=== PATIENT | female | born 1940 | race Caucasian/White ===

== ENCOUNTER 2017-03-02 11:05 | Observation (INO) | payer MEDICARE ==
--- NOTE | 2017-03-02 11:35 | ER Document Report ---
ED Neuro Symptoms/Deficit - General Mode of Arrival: Ambulatory Information source: Patient, Friend TRAVEL OUTSIDE OF THE [place] IN LAST 30 DAYS: No <OLU PRESTON - Last Filed: 03/02/17 12:12> <FRANCHESCA HERRERA - Last Filed: 03/02/17 14:27> - General Chief Complaint: Slurred Speech Stated Complaint: SLURRED SPEACH Time Seen by Provider: 03/02/17 11:25 Notes: Patient is a 76-year-old female that presents to the emergency department today with complaints of left-sided facial weakness, left-sided facial numbness, and subjective left hand weakness. Patient states her symptoms began last week, friend at bedside adds that the day of onset was last Thursday, with "cheek swelling" and the friend also adds that her cheek looked "puffy and she was drooling". Patient states she has a sensation of "pressure behind the eyes and left sided lip numbness". Patient denies having a history of CVA in the past. Patient denies left lower extremity weakness, nausea, or abdominal pain. (OLU PRESTON) - Related Data Allergies/Adverse Reactions: doxycycline Allergy (Verified 03/02/17 12:50) sulfamethoxazole [From Bactrim] Allergy (Verified 03/02/17 12:50) trimethoprim [From Bactrim] Allergy (Verified 03/02/17 12:50) Home Medications: Current Home Medications Amlodipine Besylate [Norvasc 10 mg Tablet] 10 mg PO DAILY 03/02/17 [History] Clindamycin HCl [Clindamycin HCl] 150 mg PO DAILY 03/02/17 [History] Mupirocin [Mupirocin] 22 gm TOP BID 03/02/17 [History] Quinapril HCl 80 mg PO DAILY 03/02/17 [History] Past Medical History - General Information source: Patient - Social History Smoking Status: Unknown if Ever Smoked Cigarette use (# per day): No Frequency of alcohol use: None Drug Abuse: None Lives with: Family Family History: Reviewed & Not Pertinent Patient has suicidal ideation: No - Past Medical History Cardiac Medical History: Reports: Hx Hypertension EENT Medical History: Reports: Eyes - Right-sided macular degeneration Neurological Medical History: Denies: Hx Cerebrovascular Accident Renal/ Medical History: Denies: Hx Peritoneal Dialysis Surgical Hx: Negative <OLU PRESTON - Last Filed: 03/02/17 12:12> Review of Systems - Review of Systems Constitutional: No symptoms reported EENT: No symptoms reported Cardiovascular: No symptoms reported Respiratory: No symptoms reported Gastrointestinal: denies: Abdominal pain, Nausea Genitourinary: No symptoms reported Female Genitourinary: No symptoms reported Musculoskeletal: No symptoms reported Skin: No symptoms reported Hematologic/Lymphatic: No symptoms reported Neurological/Psychological: See HPI, Other - left sided facial numbness, weakness, subjective left hand weakness -: Yes All other systems reviewed and negative <OLU PRESTON - Last Filed: 03/02/17 12:12> Physical Exam <OLU PRESTON - Last Filed: 03/02/17 12:12> <FRANCHESCA HERRERA - Last Filed: 03/02/17 14:27> - Vital signs Vitals: Temp Pulse Resp BP Pulse Ox 98.6 F 107 H 18 180/91 H 97 03/02/17 11:12 03/02/17 11:12 03/02/17 11:12 03/02/17 11:12 03/02/17 11:12 - Notes Notes: Physical Exam: General: Alert, appears well. HEENT: Normocephalic. Atraumatic. PERRL. Extraocular movements intact. Oropharynx clear. Left sided facial asymmetry, see neuro exam. Neck: Supple. Non-tender. Respiratory: No respiratory distress. Clear and equal breath sounds bilaterally. Cardiovascular: Tachycardic in the 110-120 range, normal rhythm. Abdominal: Normal Inspection. Non-tender. No distension. Normal Bowel Sounds. Back: Non-tender. No deformity or step off. Extremities: Moves all four extremities. Upper extremities: Normal inspection. Normal ROM. Lower extremities: Normal inspection. No edema. Normal ROM. Neurological: Normal cognition. AAOx4. Normal speech. 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 Psychological: Normal affect. Normal Mood. Skin: Warm. Dry. Normal color. (OLU PRESTON) Course - Laboratory Result Diagrams: 03/02/17 11:34 03/02/17 11:34 <KARYOLU CORREA - Last Filed: 03/02/17 12:12> - Laboratory Result Diagrams: 03/02/17 11:34 03/02/17 11:34 <FRANCHESCA HERRERA - Last Filed: 03/02/17 14:27> - Re-evaluation Re-evalutation: 03/02/17 12:44 I was called with CT results. The patient has evidence of possible acute infarct in the posterior right parietal area. Patient's timeframe for this event is unclear to me. She has been having symptoms over the past week, but with worsening asymmetry starting yesterday. No thrombolytic treatment is indicated due to this timeframe as well as the low neurologic impairment she is displaying. I discussed the case with the hospitalist service, Dr. Genesis Childs, who will see the patient emergency department and arrange for admission. I had spoken about this with the patient first and she reluctantly agreed to be admitted to the hospital. (FRANCHESCA HERRERA) - Vital Signs Vital signs: Temp Pulse Resp BP Pulse Ox 98.6 F 104 H 24 H 171/76 H 95 03/02/17 11:12 03/02/17 11:25 03/02/17 13:02 03/02/17 13:02 03/02/17 13:02 - Laboratory Laboratory results interpreted by me: 03/02/17 03/02/17 03/02/17 11:34 11:34 11:34 RDW 14.6 H Glucose 116 H POC Glucose 120 H Direct Bilirubin 0.5 H Discharge <OLU PRESTON - Last Filed: 03/02/17 12:12> - Discharge Admitting Provider: Hospitalist <FRANCHESCA HERRERA - Last Filed: 03/02/17 14:27> - Discharge Clinical Impression: Facial droop due to stroke CVA (cerebral vascular accident) Qualifiers: CVA mechanism: unspecified Qualified Code(s): I63.9 - Cerebral infarction, unspecified Condition: Fair Disposition: ADMITTED INPATIENT Scribe Documentation - Scribe Written by Don:: Don Naranjo, 03/02/2017 1228 acting as scribe for :: Marisa <OLU PRESTON - Last Filed: 03/02/17 12:12>
--- NOTE | 2017-03-02 11:42 | RADIOLOGY REPORT (SQ) ---
EXAM DESCRIPTION: CT HEAD WITHOUT COMPLETED DATE/TIME: 03/02/2017 11:22 am REASON FOR STUDY: t2/19 stroke alert COMPARISON: None. TECHNIQUE: Axial images acquired through the brain without intravenous contrast. Images reviewed wi th bone, brain and subdural windows. Images stored on PACS. All CT scanners at this facility use dose modulation, iterative reconstruction, and/or weight based d osing when appropriate to reduce radiation dose to as low as reasonably achievable (ALARA). [facility]: Dose Right [facility]: CareDose [facility]: Dose Right [facility]: Teradose 4D [facility]: [employer] RADIATION DOSE: Up-to-date CT equipment and radiation dose reduction techniques were employed. CTDIv ol: 64.6 mGy. DLP: 1163 mGy-cm. mGy. LIMITATIONS: None. FINDINGS: VENTRICLES: Normal size and contour. CEREBRUM: No masses. No hemorrhage. No midline shift. There is a small area of decreased attenuati on in the posterior parietal white matter on the right that appears to extend to involve the cortex. See images 22 through 25 series 2. . Few scattered areas of low density in the white matter most li laura chronic small vessel ischemic changes. CEREBELLUM: No masses. No hemorrhage. No alteration of density. No evidence for acute infarction. EXTRAAXIAL SPACES: No fluid collections. No masses. ORBITS AND GLOBE: No intra- or extraconal masses. Normal contour of globe without masses. CALVARIUM: No fracture. PARANASAL SINUSES: No fluid or mucosal thickening. SOFT TISSUES: No mass or hematoma. OTHER: No other significant finding. IMPRESSION: There is mild chronic microvascular ischemia. There is an area in the posterior right p arietal lobe concerning for limited acute infarction. EVIDENCE OF ACUTE STROKE: YES. 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 Landry, at 1134 hours on this da te. Quality ID # [id number]: Final reports with documentation of one or more dose reduction techniques (e.g., Au tomated exposure control, adjustment of the mA and/or kV according to patient size, use of iterative reconstruction technique) TECHNICAL DOCUMENTATION: JOB ID: [id number] [employer]- All Rights Reserved
[2017-03-02 11:46] LABS: PROTHROMBIN TIME 12.8 SEC (11.4-15.4)
--- NOTE | 2017-03-02 11:46 | RADIOLOGY REPORT (SQ) ---
EXAM DESCRIPTION: CHEST SINGLE VIEW COMPLETED DATE/TIME: 03/02/2017 11:29 am REASON FOR STUDY: t2/19 stroke alert COMPARISON: None. EXAM PARAMETERS: NUMBER OF VIEWS: One view. TECHNIQUE: Single frontal radiographic view of the chest acquired. RADIATION DOSE: NA LIMITATIONS: None. FINDINGS: LUNGS AND PLEURA: No opacities, masses or pneumothorax. No pleural effusion. MEDIASTINUM AND HILAR STRUCTURES: No masses. Contour normal. HEART AND VASCULAR STRUCTURES: Heart normal in size. Normal vasculature. BONES: No acute findings. HARDWARE: None in the chest. OTHER: No other significant finding. IMPRESSION: NO ACUTE RADIOGRAPHIC FINDING IN THE CHEST. TECHNICAL DOCUMENTATION: JOB ID: [id number]
[2017-03-02 11:47] LABS: PARTIAL THROMBOPLASTIN TIME 33.2 SEC (23.5-35.8)
[2017-03-02 11:49] LABS: ABSOLUTE BASOPHILS # (AUTO) 0.1 10^3/uL (0.0-0.2); ABSOLUTE LYMPHOCYTES (AUTO) 1.2 10^3/uL (0.5-4.7); ABSOLUTE MONOCYTES (AUTO) 0.4 10^3/uL (0.1-1.4); BASOPHILS % (AUTO) 0.9 % (0-2); EOSINOPHILS % (AUTO) 0.5 % (0-6); HEMOGLOBIN 15.1 g/dL (12.0-15.5); HGB HCT DIFFERENCE 1.3; LYMPHOCYTES % (AUTO) 15.4 % (13-45); MEAN CORPUSCULAR HEMOGLOBIN 29.4 pg (27.0-33.4); MEAN CORPUSCULAR HGB CONC 34.4 g/dL (32.0-36.0); MEAN CORPUSCULAR VOLUME 85 fl (80-97); MONOCYTES % (AUTO) 5.2 % (3-13); RED BLOOD COUNT 5.15 10^6/uL (3.72-5.28); RED CELL DISTRIBUTION WIDTH 14.6 % (11.5-14.0); WHITE BLOOD COUNT 7.6 10^3/uL (4.0-10.5)
[2017-03-02 12:12] LABS: ALANINE AMINOTRANSFERASE 30 U/L (9-52); ALBUMIN 4.9 g/dL (3.5-5.0); ALKALINE PHOSPHATASE 107 U/L (38-126); ANION GAP 17 (5-19); ASPARTATE AMINO TRANSFERASE 19 U/L (14-36); BILIRUBIN,DIRECT 0.5 mg/dL (0.0-0.4); BILIRUBIN,TOTAL 0.7 mg/dL (0.2-1.3); BLOOD UREA NITROGEN 11 mg/dL (7-20); CARBON DIOXIDE 23 mmol/L (22-30); CHLORIDE 101 mmol/L (98-107); CREATINE KINASE 45 U/L (30-135); CREATININE RESULT 0.66 mg/dL (0.52-1.25); GLUCOSE 116 mg/dL (75-110); POTASSIUM 3.7 mmol/L (3.6-5.0); SODIUM 140.7 mmol/L (137-145); TOTAL PROTEIN 8.2 g/dL (6.3-8.2)
[2017-03-02 12:22] LABS: CREATINE KINASE MB 0.85 ng/mL (<4.55)
[2017-03-02 12:31] LABS: TROPONIN I < 0.012 ng/mL
[2017-03-02] MEDS ORDERED: TEMAZEPAM 15 MG CAPSULE PO PRN (13:40)
[2017-03-02] MEDS ORDERED: HYDRALAZINE HCL INJ/PF 20 MG/1 ML SDV IV PRN (13:49)
--- NOTE | 2017-03-02 14:05 | PDOC H&P ---
History of Present Illness Admission Date/PCP: 03/02/2017 sole rougher: Dr Arias at [facility] History of Present Illness: LANG RAHMAN is a 76 year old female who presented to the emergency room with a 3-4 day history of left-sided facial droop and left-sided weakness. Initially she felt like she may have Thornton's palsy but after she developed some tingling and some subjective weakness in her left upper extremity she decided to present to the emergency room for further evaluation. She had a CT scan of the brain which revealed a possible subacute infarct. She was referred for admission. Her past medical history significant for hypertension and hidradenitis as well as macular degeneration. Past Medical History Cardiac Medical History: Reports: Hypertension Pulmonary Medical History: Reports: None EENT Medical History: Reports: Eyes - Right-sided macular degeneration Neurological Medical History: Reports: None Endocrine Medical History: Reports: None Renal/ Medical History: Reports: None Malignancy Medical History: Reports: None GI Medical History: Reports: None Musculoskeltal Medical History: Reports: None Skin Medical History: Reports: Other - Hidradenitis Psychiatric Medical History: Reports: Tobacco Dependency Traumatic Medical History: Reports: None Hematology: Reports: None Infectious Medical History: Reports: None Past Surgical History Past Surgical History: Reports: Hysterectomy, Other - Surgery on her hidradenitis. Social History Information Source: Patient, Friend Lives with: Family Smoking Status: Current Every Day Smoker Cigarettes Packs Per Day: 1.5 - Packs per day Number of Years Smokin - 20+ Last Time Smoked: Today Frequency of Alcohol Use: None Drugs: None Hx Prescription Drug Abuse: No - Advance Directive Surrogate healthcare decision maker:: Her surrogate decision-maker is her son Senthil Bain. He can be reached at Family History Family History: Hypertension, Malignancy Parental Family History Reviewed: Yes Children Family History Reviewed: No Sibling(s) Family History Reviewed.: Yes Medication/Allergy Home Medications: Amlodipine Besylate [Norvasc 10 mg Tablet] 10 mg PO DAILY 03/02/17 Clindamycin HCl [Clindamycin HCl] 150 mg PO DAILY 03/02/17 Mupirocin [Mupirocin] 22 gm TOP BID 03/02/17 Quinapril HCl 80 mg PO DAILY 03/02/17 Allergies/Adverse Reactions: doxycycline Allergy (Verified 03/02/17 12:50) sulfamethoxazole [From Bactrim] Allergy (Verified 03/02/17 12:50) trimethoprim [From Bactrim] Allergy (Verified 03/02/17 12:50) Review of Systems Constitutional: PRESENT: weakness Eyes: ABSENT: visual disturbances Ears: ABSENT: hearing changes Nose, Mouth, and Throat: ABSENT: headache(s), mouth pain, sore throat, vertigo Cardiovascular: ABSENT: chest pain, dyspnea on exertion, edema, orthropnea, palpitations Respiratory: ABSENT: cough, dyspnea, hemoptysis, sputum Gastrointestinal: ABSENT: abdominal pain, constipation, diarrhea, nausea, vomiting Integumentary: ABSENT: diaphoresis, erythema, lesions Neurological: PRESENT: tingling, weakness, other - She has left-sided facial droop as well as left-sided weakness, particularly in her left upper extremity.. ABSENT: abnormal gait, abnormal speech, dizziness Psychiatric: ABSENT: anxiety, depression, homidical ideation, suicidal ideation Endocrine: ABSENT: cold intolerance, heat intolerance, polydipsia, polyphagia, polyuria Hematologic/Lymphatic: ABSENT: easy bleeding, easy bruising, lymphadenopathy Allergic/Immunologic: ABSENT: seasonal rhinorrhea Physical Exam Vital Signs: Temp Pulse Resp BP Pulse Ox 98.6 F 104 H 24 H 171/76 H 95 03/02/17 11:12 03/02/17 11:25 03/02/17 13:02 03/02/17 13:02 03/02/17 13:02 Intake & Output 03/01/17 03/02/17 03/03/17 06:59 06:59 06:59 Weight 72.5 kg General appearance: PRESENT: no acute distress, well-developed, well-nourished Head exam: PRESENT: atraumatic. ABSENT: normocephalic - She has mild left- sided facial droop Eye exam: PRESENT: conjunctiva pink, EOMI, PERRLA. ABSENT: scleral icterus Ear exam: PRESENT: normal external ear exam Mouth exam: PRESENT: moist. ABSENT: tongue midline - Tongue is somewhat deviated to the left Neck exam: ABSENT: carotid bruit, JVD, lymphadenopathy, thyromegaly Respiratory exam: PRESENT: clear to auscultation jordyn. ABSENT: rales, rhonchi, wheezes Cardiovascular exam: PRESENT: RRR. ABSENT: diastolic murmur, rubs, systolic murmur GI/Abdominal exam: PRESENT: normal bowel sounds, soft. ABSENT: distended, guarding, mass, organolmegaly, rebound, tenderness Rectal exam: PRESENT: deferred Extremities exam: PRESENT: full ROM. ABSENT: calf tenderness, clubbing, pedal edema Neurological exam: PRESENT: alert, awake, oriented to person, oriented to place , oriented to time, oriented to situation, other - Mild left-sided facial droop. She has extremely mild left hemiparesis. ABSENT: motor sensory deficit Psychiatric exam: PRESENT: appropriate affect, normal mood. ABSENT: homicidal ideation, suicidal ideation Skin exam: PRESENT: dry, intact, warm. ABSENT: cyanosis, rash Results Laboratory Results: 03/02/17 11:34 03/02/17 11:34 03/02/17 03/02/17 11:34 11:34 WBC 7.6 RBC 5.15 Hgb 15.1 Hct 44.0 MCV 85 MCH 29.4 MCHC 34.4 RDW 14.6 H Plt Count 183 Seg Neutrophils % 78.0 Lymphocytes % 15.4 Monocytes % 5.2 Eosinophils % 0.5 Basophils % 0.9 Absolute Neutrophils 6.0 Absolute Lymphocytes 1.2 Absolute Monocytes 0.4 Absolute Eosinophils 0.0 Absolute Basophils 0.1 Sodium 140.7 Potassium 3.7 Chloride 101 Carbon Dioxide 23 Anion Gap 17 BUN 11 Creatinine 0.66 Est GFR ( Amer) > 60 Est GFR (Non-Af Amer) > 60 Glucose 116 H Calcium 10.0 Total Bilirubin 0.7 AST 19 ALT 30 Alkaline Phosphatase 107 Total Protein 8.2 Albumin 4.9 03/02/17 03/02/17 11:34 11:34 Creatine Kinase 45 CK-MB (CK-2) 0.85 Troponin I < 0.012 Impressions: Chest X-Ray 03/02/17 11:16 IMPRESSION: NO ACUTE RADIOGRAPHIC FINDING IN THE CHEST. Head CT 03/02/17 11:16 IMPRESSION: There is mild chronic microvascular ischemia. There is an area in the posterior right parietal lobe concerning for limited acute infarction. EVIDENCE OF ACUTE STROKE: YES. 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 We will get an MRI of the brain, carotid Dopplers and 2D echocardiogram for further evaluation. She states that she used to take aspirin in the past but it upset her stomach. Will place her on an aspirin as well as a PPI for now. She will be started on a statin medication. We will try to get better control over her blood pressure. (2) Hypertensive emergency Plan: The patient's blood pressure was extremely high when she came to the hospital. It is improved as of the time of this dictation. She will continue her home regimen and she will have IV hydralazine available as needed. (3) Hyperglycemia Plan: Possibly just reactive to her CVA. Will get a hemoglobin A1c in the morning. She will also have a chemistry panel checked in the morning as well. (4) Left hemiparesis Plan: The patient has extremely mild left hemiparesis. This is likely secondary to acute versus subacute CVA. Will get physical therapy to evaluate her. (5) Tobacco abuse Plan: She will have a nicotine patch placed today. She was encouraged to quit smoking. (6) Full code status Plan: Surrogate decision maker was documented which is her son Senthil Bain - Time Time Spent: 50 to 70 Minutes - Inpatient Certification Based on my medical assessment, after consideration of the patient's comorbidities, presenting symptoms, or acuity I expect that the services needed warrant INPATIENT care.: No I certify that my determination is in accordance with my understanding of Medicare's requirements for reasonable and necessary INPATIENT services [42 CFR 412.3e].: No - Plan Summary Plan Summary: The patient will be placed in observation at the hospital. I believe that her workup will take less than 2 midnights. Hopefully since her symptoms are quite mild she can be discharged home tomorrow afternoon after her workup is complete with close outpatient follow-up by her primary care provider.
[2017-03-02] MEDS ORDERED: NICOTINE 21 MG/24 HR PATCH.TD24 TD ONE (14:06)
[2017-03-02 14:45] LABS: APPEARANCE,URINE CLEAR; BILIRUBIN,URINE NEGATIVE (NEGATIVE); GLUCOSE, URINE NEGATIVE (NEGATIVE); KETONES,URINE TRACE mg/dL (NEGATIVE); LEUKOCYTE ESTERASE,URINE NEGATIVE (NEGATIVE); NITRITE,URINE NEGATIVE (NEGATIVE); PROTEIN,URINE NEGATIVE (NEGATIVE); URINE SPECIFIC GRAVITY 1.002; UROBILINOGEN,URINE NEGATIVE mg/dL (<2.0)
--- NOTE | 2017-03-02 16:04 | RADIOLOGY REPORT (SQ) ---
EXAM DESCRIPTION: CAROTID DOPPLER COMPLETED DATE/TIME: 03/02/2017 3:29 pm REASON FOR STUDY: cva COMPARISON: CT BRAIN 03/02/2017 TECHNIQUE: Grayscale ultrasound, Doppler velocity and spectra, and color Doppler images acquired of the extra-cranial carotid and vertebral arteries. Images stored on PACS. LIMITATIONS: None. FINDINGS: RIGHT CAROTID CCA Velocities: Within normal limits. ICA Velocities Peak systolic 3.4 m/s. End diastolic 1.4 m/s. Proximal ICA/CCA peak systolic ratio 4.8. There is calcific and noncalcific plaque at the right carotid bifurcation causing shadowing of the or igin right ICA. Immediately distal to the shadowing plaque, velocities suggest greater than 70% sten osis. This finding was called to Sujatha Childs as a critical result, 1540 hours 03/02/2017. LEFT CAROTID CCA Velocities: Within normal limits. ICA Velocities Peak systolic 1.2 m/s. End diastolic 0.5 m/s. Proximal ICA/CCA peak systolic ratio 1.6. There is mixed calcific and noncalcific plaque at the left carotid bifurcation shadowing the origin o f the left ICA. Immediately distal to the shadowing plaque, velocities suggest 50 to 69% narrowing, closer to 50%. VERTEBRAL ARTERIES: Antegrade flow. Normal waveforms. SUBCLAVIAN ARTERIES: Not evaluated OTHER: No other significant finding. IMPRESSION: Greater than 70% stenosis proximal right ICA from calcific and noncalcific plaque. 50 to 69% narrowing proximal left internal carotid artery from calcific and noncalcific plaque RECOMMENDATION: Pertinent findings on the imaging study reported as a CRITICAL RESULT to SUJATHA VAZQUEZ at15:40 on 03/02/2017. Category of Critical Result: Carotid stenosis right side greater than 70% COMMENT: Quality ID #[id number]: Velocity criteria are extrapolated from the diameter data as defined by t he Society of Radiologists in Ultrasound Consensus Conference. Radiology 2003: 229; 340-346. TECHNICAL DOCUMENTATION: JOB ID: [id number] [employer]- All Rights Reserved
--- NOTE | 2017-03-02 18:38 | EKG REPORT ---
SEVERITY:- ABNORMAL ECG - SINUS TACHYCARDIA PROBABLE LEFT ATRIAL ABNORMALITY CONSIDER ANTEROSEPTAL INFARCT : Confirmed by: Chary Brown 02-Mar-2017 18:37:44
--- NOTE | 2017-03-02 19:09 | XCELERA REPORT ---
[address] [address] Transthoracic Echocardiogram Report Name: LANG RAHMAN Age: 76 yrs Gender: Female : 1940 Patient Status: Inpatient Patient Location: [place] [address]^A Study Date: 03/02/2017 02:07 PM Height: 63 in Weight: 159 lb BSA: 1.8 m2 Procedure: A two-dimensional transthoracic echocardiogram with color flow and Doppler was performed. The study was technically difficult with many images being suboptimal in quality. Reason For Study: CVA History: CVA. Ordering Physician: SUJATHA SEGOVIA Performed By: Susana Harper Interpretation Summary There is no obvious cardiac source of embolus noted on this transthoracic echocardiogram. Follow-up with a MICHEL is suggested if cardiac source is still suspected. The left ventricle is normal in size. There is mild concentric left ventricular hypertrophy. LV EF is > than 60% Doppler measurements suggest pseudonormalized left ventricular relaxation, which is associated with grade II/IV or mild to moderate diastolic dysfunction The left ventricular wall motion is normal. There is no thrombus. The right ventricle is not well visualized secondary to technical limitations The right atrium is normal. The left atrial size is normal. There is no evidence of mitral valve prolapse. There is no mitral valve stenosis. There is a trace amount of mitral regurgitation Aortic Sclerosis without Stenosis. No aortic regurgitation is present. There is no tricuspid stenosis. There is a trace amount of tricuspid regurgitation No significant pulmonary hypertension.RVSP is 32 mm of Hg , with RA mean of 5, and is just above the upper normal limit of 30 mm of Hg. There is no pericardial effusion. There is no obvious cardiac source of embolus noted on this transthoracic echocardiogram. Follow-up with a MICHEL is suggested if cardiac source is still suspected MMode/2D Measurements & Calculations RVDd: 2.9 cm LVIDd: 4.1 cm FS: 31.4 % Ao root diam: 2.5 cm IVSd: 1.2 cm LVIDs: 2.8 cm EDV(Teich): 74.4 ml LVPWd: 1.2 cm ESV(Teich): 30.0 ml Ao root area: 5.0 cm2 EF(Teich): 59.7 % LA dimension: 3.3 cm Doppler Measurements & Calculations MV E max shirlene: MV P1/2t max shirlene: Ao V2 max: LV V1 max P.9 cm/sec 83.9 cm/sec 165.1 cm/sec 3.6 mmHg MV A max shirlene: MV P1/2t: 55.6 msec Ao max PG: LV V1 max: 134.8 cm/sec 10.9 mmHg 94.3 cm/sec MV E/A: 0.62 MVA(P1/2t): 4.0 cm2 MV dec slope: 441.7 cm/sec2 PA V2 max: TR max shirlene: 97.7 cm/sec 259.3 cm/sec PA max P.8 mmHgTR max P.9 mmHg Left Ventricle The left ventricle is normal in size. There is mild concentric left ventricular hypertrophy. LV EF is > than 60%. Left ventricular systolic function is normal. Doppler measurements suggest pseudonormalized left ventricular relaxation, which is associated with grade II/IV or mild to moderate diastolic dysfunction. The left ventricular wall motion is normal. There is no thrombus. There is no ventricular septal defect visualized. Right Ventricle The right ventricle is not well visualized secondary to technical limitations. Atria The right atrium is normal. The left atrial size is normal. The interatrial septum is intact with no evidence for an atrial septal defect. Mitral Valve There is no evidence of mitral valve prolapse. There is no vegetation seen on the mitral valve. There is no mitral valve stenosis. There is a trace amount of mitral regurgitation. Aortic Valve There is no aortic valvular vegetation. Aortic Sclerosis without Stenosis. No aortic regurgitation is present. Tricuspid Valve There is no tricuspid stenosis. There is a trace amount of tricuspid regurgitation. No significant pulmonary hypertension.RVSP is 32 mm of Hg , with RA mean of 5, and is just above the upper normal limit of 30 mm of Hg. Pulmonic Valve There is no pulmonic valvular stenosis. There is no pulmonic valvular regurgitation. Great Vessels The aortic root is normal size. Effusions There is no pericardial effusion. : SUJATHA SEGOVIA > Karol Schaeffer
[2017-03-02] MEDS: ATORVASTATIN CALCIUM 40 MG TABLET PO SCH (22:04)
--- NOTE | 2017-03-02 22:31 | RADIOLOGY REPORT (SQ) ---
EXAM DESCRIPTION: MRI HEAD WITHOUT COMPLETED DATE/TIME: 03/02/2017 6:49 pm REASON FOR STUDY: cva COMPARISON: CT scan same date TECHNIQUE: Multiplanar imaging includes non-contrasted T1, T2, FLAIR, and diffusion with ADC map seq uences. Images stored on PACS. LIMITATIONS: None. FINDINGS: ANATOMY: No anomalies. Normal vascular flow voids. Pituitary fossa normal. CSF SPACES: Atrophy induced prominence of ventricles and CSF spaces. CEREBRUM: Multifocal increased T2 signal in the white matter of the right frontoparietal region. Hi gh signal intensity lesions scattered throughout the white matter on FLAIR imaging with distribution suggesting micro-vascular ischemic changes. No evidence of hemorrhage, mass, or extraaxial fluid col lection. POSTERIOR FOSSA: No signal alteration. No hemorrhage. No edema, masses or mass effect. Internal pamella tory canals, cerebello-pontine angles, mastoids normal. DIFFUSION IMAGING: Positive for acute or sub-acute multifocal infarction in the right frontoparietal region, watershed distribution. ORBITS: No masses. Globes normal. PARANASAL SINUSES: No fluid levels. Mucosa normal. OTHER: No other significant finding. IMPRESSION: Positive for acute or sub-acute multifocal infarction in the right frontoparietal region as suggested on the earlier CT scan. EVIDENCE OF ACUTE STROKE: Yes RIGHT watershed distribution of the cerebral arteries. TECHNICAL DOCUMENTATION: JOB ID: [id number]- All Rights Reserved
--- NOTE | 2017-03-03 04:03 | Physician Advisory Note ---
Physician Advisor ProgressNote .: Pursuant to the plan for [facility], I have reviewed the medical record for this patient. Physician Advisor Statement: 1. 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 Please document the BPs that led to dx of Hypertensive Emergency, and the urgent antihypertensive tx that was given for this. -Chart currently only indicates BPs of 180/91 & 144/111, and lower. Thanks! CK
[2017-03-03] MEDS: LANSOPRAZOLE 30 MG TAB.RAP.DR PO SCH (05:09)
[2017-03-03 05:43] LABS: ALANINE AMINOTRANSFERASE 28 U/L (9-52); ALKALINE PHOSPHATASE 80 U/L (38-126); ANION GAP 11 (5-19); ASPARTATE AMINO TRANSFERASE 15 U/L (14-36); BILIRUBIN,DIRECT 0.4 mg/dL (0.0-0.4); BILIRUBIN,TOTAL 0.6 mg/dL (0.2-1.3); BLOOD UREA NITROGEN 17 mg/dL (7-20); CALCIUM 9.6 mg/dL (8.4-10.2); CARBON DIOXIDE 27 mmol/L (22-30); CHLORIDE 105 mmol/L (98-107); CHOLESTEROL 185.47 mg/dL (0-200); CREATININE RESULT 0.76 mg/dL (0.52-1.25); Direct HDL 44 mg/dL (>40); GLUCOSE 98 mg/dL (75-110); POTASSIUM 3.7 mmol/L (3.6-5.0); SODIUM 143.1 mmol/L (137-145); TOTAL PROTEIN 6.7 g/dL (6.3-8.2); TRIGLYCERIDES 65 mg/dL (<150)
[2017-03-03 05:51] LABS: HEMATOCRIT 39.4 % (36.0-47.0); HEMOGLOBIN 13.7 g/dL (12.0-15.5); HGB HCT DIFFERENCE 1.7; MEAN CORPUSCULAR HEMOGLOBIN 29.5 pg (27.0-33.4); MEAN CORPUSCULAR HGB CONC 34.7 g/dL (32.0-36.0); MEAN CORPUSCULAR VOLUME 85 fl (80-97); RED BLOOD COUNT 4.63 10^6/uL (3.72-5.28); RED CELL DISTRIBUTION WIDTH 14.8 % (11.5-14.0); WHITE BLOOD COUNT 5.6 10^3/uL (4.0-10.5)
[2017-03-03 05:53] LABS: DIRECT LDL 132 mg/dL (<100)
[2017-03-03] MEDS ORDERED: QUINAPRIL HCL PO SCH (10:00)
[2017-03-03] MEDS: CLOPIDOGREL BISULFATE 75 MG TABLET PO SCH (10:43)
[2017-03-03] MEDS: AMLODIPINE BESYLATE 10 MG TABLET PO SCH (10:43)
[2017-03-03] MEDS: ASPIRIN 325 MG TABLET, ENT COATED PO SCH (10:44)
[2017-03-03] MEDS: ENALAPRIL MALEATE 10 MG TABLET PO SCH (10:44)
[2017-03-03] MEDS: ENOXAPARIN SODIUM INJ 40 MG/0.4 ML DISP.SYRIN SUBCUT SCH (10:46)
--- NOTE | 2017-03-03 14:56 | PDOC PROGRESS REPORT ---
Subjective Progress Note for:: 03/03/17 Subjective:: 76-year-old female was admitted with acute posterior right parietal lobe infarct. Patient has left-sided weakness to her upper extremity and left-sided facial drooping. Denies any dysphasia or any difficulties ambulating. Patient has a history of essential hypertension and came in on blood pressure medication. Initially she had hypertensive emergency requiring IV medications in the ER. Today her blood pressure has been stable. Physical Exam Vital Signs: Temp Pulse Resp BP Pulse Ox 98.3 F 76 20 141/66 H 94 03/03/17 04:13 03/03/17 04:13 03/03/17 04:13 03/03/17 04:13 03/03/17 04:00 Intake & Output 03/02/17 03/03/17 03/04/17 06:59 06:59 06:59 Intake Total 15 Balance 15 Weight 72.4 kg General appearance: PRESENT: no acute distress, cooperative, well-nourished Head exam: PRESENT: atraumatic Eye exam: PRESENT: conjunctiva pink Ear exam: PRESENT: normal external ear exam Mouth exam: PRESENT: moist, neck supple, tongue midline, other - left sided drooping Neck exam: ABSENT: carotid bruit, JVD, lymphadenopathy, thyromegaly Respiratory exam: PRESENT: clear to auscultation jordyn. ABSENT: rales, rhonchi, wheezes Cardiovascular exam: PRESENT: RRR. ABSENT: diastolic murmur, rubs, systolic murmur Pulses: PRESENT: normal dorsalis pedis pul Vascular exam: PRESENT: normal capillary refill GI/Abdominal exam: PRESENT: normal bowel sounds, soft. ABSENT: distended, guarding, mass, organolmegaly, rebound, tenderness Rectal exam: PRESENT: deferred Extremities exam: PRESENT: other - left upper ext. weakness Musculoskeletal exam: PRESENT: ambulatory, other - decrease ROM to LUE Neurological exam: PRESENT: alert, oriented to person, oriented to place, oriented to time, oriented to situation, normal gait, other Psychiatric exam: PRESENT: appropriate affect, normal mood. ABSENT: homicidal ideation, suicidal ideation Skin exam: PRESENT: dry, intact, warm. ABSENT: cyanosis, rash Results Laboratory Results: 03/03/17 04:24 03/03/17 04:24 03/03/17 03/03/17 04:24 04:24 WBC 5.6 RBC 4.63 Hgb 13.7 Hct 39.4 MCV 85 MCH 29.5 MCHC 34.7 RDW 14.8 H Plt Count 146 L Sodium 143.1 Potassium 3.7 Chloride 105 Carbon Dioxide 27 Anion Gap 11 BUN 17 Creatinine 0.76 Est GFR ( Amer) > 60 Est GFR (Non-Af Amer) > 60 Glucose 98 Calcium 9.6 Total Bilirubin 0.6 AST 15 ALT 28 Alkaline Phosphatase 80 Total Protein 6.7 Albumin 4.0 Triglycerides 65 Cholesterol 185.47 LDL Cholesterol Direct 132 H VLDL Cholesterol 13.0 HDL Cholesterol 44 Impressions: Head MRI 03/02/17 00:00 IMPRESSION: Positive for acute or sub-acute multifocal infarction in the right frontoparietal region as suggested on the earlier CT scan. EVIDENCE OF ACUTE STROKE: Yes RIGHT watershed distribution of the cerebral arteries. Chest X-Ray 03/02/17 11:16 IMPRESSION: NO ACUTE RADIOGRAPHIC FINDING IN THE CHEST. Head CT 03/02/17 11:16 IMPRESSION: There is mild chronic microvascular ischemia. There is an area in the posterior right parietal lobe concerning for limited acute infarction. EVIDENCE OF ACUTE STROKE: YES. RIGHT COLOR TESTER. Carotid Doppler Study 03/02/17 13:44 IMPRESSION: Greater than 70% stenosis proximal right ICA from calcific and noncalcific plaque. 50 to 69% narrowing proximal left internal carotid artery from calcific and noncalcific plaque ECHO: Echocardiogram showed LVEF 60%. No embolus noted. Left ventricular is normal sinus. Assessment & Plan - Diagnosis (1) CVA (cerebral vascular accident) Qualifiers: CVA mechanism: embolism Precerebral and cerebral artery: posterior cerebral artery Laterality of affected vessel: right Qualified Code(s): I63.431 - Cerebral infarction due to embolism of right posterior cerebral artery Is this a current diagnosis for this admission?: Yes Plan: Continue statins, continue aspirin, continue antihypertensive medication, continue therapy PT/OT/speech. MRI confirmed an acute stroke. Carotid Doppler ultrasound showed Hbg A1C was 5.6 patient had been on aspirin before but had taken herself off of it. In light of this and with her family history of mother and grandmother all from CVAs I have initiated Plavix and will start her back on aspirin but enteric-coated. (2) Left hemiparesis Is this a current diagnosis for this admission?: Yes Plan: Continue OT and PT evaluation per recommendations for outpatient therapy. Consult case management to set up outpatient rehab/therapy (3) Facial droop due to stroke Is this a current diagnosis for this admission?: Yes Plan: Patient past bedside swallowing and tolerating diet well. No signs of dysphasia noted. Will continue with a formal speech evaluation (4) Hypertensive emergency Is this a current diagnosis for this admission?: Yes Plan: Stable patient denies DM continue Enalapril, Norvasc, Lipitor, and hydralazine as needed. (5) Tobacco abuse Is this a current diagnosis for this admission?: Yes Plan: Encourage smoking cessation and educated materials were given to the patient. - Time Time Spent with patient: 25-34 minutes Smoking Cessation Education: 3 to 10 minutes Medications reviewed and adjusted accordingly: Yes Anticipated discharge: Home Within: within 24 hours
[2017-03-03] MEDS: ATORVASTATIN CALCIUM 40 MG TABLET PO SCH (22:17)
[2017-03-04] MEDS: LANSOPRAZOLE 30 MG TAB.RAP.DR PO SCH (06:46)
[2017-03-04] MEDS: ENOXAPARIN SODIUM INJ 40 MG/0.4 ML DISP.SYRIN SUBCUT SCH (10:10)
[2017-03-04] MEDS: AMLODIPINE BESYLATE 10 MG TABLET PO SCH (10:11)
[2017-03-04] MEDS: ENALAPRIL MALEATE 10 MG TABLET PO SCH (10:11)
[2017-03-04] MEDS: ASPIRIN 325 MG TABLET, ENT COATED PO SCH (10:11)
[2017-03-04] MEDS: CLOPIDOGREL BISULFATE 75 MG TABLET PO SCH (10:11)
[2017-03-04 10:33] VITALS: BP 141/66
--- NOTE | 2017-03-04 17:10 | PDOC DISCHARGE SUMMARY ---
General - Admit/Disc Date/PCP Admission Date/Primary Care Provider: 03/02/17 13:40 BENNETT THURSTON MD Discharge Date: 03/04/17 - Discharge Diagnosis (1) CVA (cerebral vascular accident) Is this a current diagnosis for this admission?: Yes Summary: Patient did have a mild CVA of right posterior cerebral artery. Patient had a carotid Doppler ultrasound which showed 70% stenosis of her right carotid artery. Her left carotid artery was normal limits. Patient had echocardiogram that showed LVEF of greater than 60%. Left ventricular hypertrophy, grade 2-3 mild to moderate diastolic dysfunction. MRI of the brain showed positive for acute or subacute multifocal infarction in the right frontoparietal region that was suggested on the earlier CT scan. Patient was started on a statin, restarting on a aspirin, encourage her to take enteric-coated, and she was started on Plavix. Patient states her mother and grandmother both from CVA. Of note patient told me today that she did have some vision problems when she asked what will be some of the signs that she was having another stroke and I informed her that some of her vision change. I recommend that she follow up outpatient with her machine tech for an exam. She is also going to go back to [facility] in which she will follow-up with her primary care (2) Left hemiparesis Is this a current diagnosis for this admission?: Yes Summary: Patient suffered some left weakness upper extremity and left-sided facial droopiness. She did receive OT and PT signed off because she was unable to ambulate without any difficulties and she was stable and maintain her balance. However OT was working with her since she had some decreased strength and range of motion in her left upper extremity. (3) Facial droop due to stroke Is this a current diagnosis for this admission?: Yes (4) Tobacco abuse Is this a current diagnosis for this admission?: Yes Summary: I have had a long discussion regarding smoking cessation and have encouraged her to at least cut down on her amount which she smokes about a pack a day (5) Essential (primary) hypertension Is this a current diagnosis for this admission?: Yes Summary: Patient was found to have a hyperintensive emergency Requiring IV antihypertensive. Initial blood pressure was 180s over 110. Blood pressure was stable upon discharge at 147/60. She was to continue Vasotec 40 mg a day, Norvasc 10 mg a day, - Additional Information Resuscitation Status: Full Code Discharge Diet: As Tolerated Home Medications: Amlodipine Besylate [Norvasc 10 mg Tablet] 10 mg PO DAILY 03/02/17 Quinapril HCl 80 mg PO DAILY 03/02/17 Aspirin [Ecotrin 325 mg EC Tablet] 325 mg PO DAILY #30 tabec 03/04/17 Atorvastatin Calcium [Lipitor 40 mg Tablet] 40 mg PO QHS #30 tablet 03/04/17 Clopidogrel Bisulfate [Plavix 75 mg Tablet] 75 mg PO DAILY #30 tablet 03/04/17 Lansoprazole [Prevacid 30 mg Odt Tablet] 30 mg PO ACBRKFST 30 Days #30 tab. 03/04/17 History of Present Illness Patient complains of: Left-sided facial drooping History of Present Illness: LANG RAHMAN is a 76 year old female who came to the emergency room with left-sided arm weakness and mouth drooping. She was found to have an acute right posterior parietal lobe infarct. MRI was obtained, CT of the head was obtained, CVA workup including carotid ultrasounds, echocardiogram, PT OT and speech therapy. Patient tolerated hospitalization well and seemed to have slowly been showing some recovery and improvement every day. She was stable on her feet able to ambulate independently she did not have any balance issues she did have some left upper extremity weakness numbness and tingling left-sided facial asymmetry, but no signs of dysphasia was noted. She is going to continue with outpatient OT. Patient told me today she was having some vision disturbance and I have asked her to follow-up with machine tech once she is at home. Patient was living here with 1 of her children and decided to go live in [place]. She has an established primary care physician there. I have asked her to follow-up with her PCP and an appointment was made while she was here. Given to the patient and the daughter and at that appointment her PCP is to recommend a neurologist and an machine tech in the area. Patient was started on Plavix, aspirin enteric-coated I have originally requested 325 mg but if they cannot find an enteric-coated one within the 81 mg will be okay. Home health was set up and OT was to evaluate and treat. Physical Exam Vital Signs: Temp Pulse Resp BP Pulse Ox 98.0 F 81 13 141/66 H 97 03/04/17 10:30 03/04/17 10:30 03/04/17 10:30 03/04/17 10:30 03/04/17 10:30 Intake & Output 03/03/17 03/04/17 03/05/17 06:59 06:59 06:59 Intake Total 15 365 Balance 15 365 Weight 72.4 kg 74.7 kg General appearance: PRESENT: no acute distress, well-developed, well-nourished Head exam: PRESENT: atraumatic, normocephalic Eye exam: PRESENT: conjunctiva pink, EOMI, PERRLA. ABSENT: scleral icterus Ear exam: PRESENT: normal external ear exam Mouth exam: PRESENT: moist, tongue midline, other - Left sided facial drooping Neck exam: ABSENT: carotid bruit, JVD, lymphadenopathy, thyromegaly Respiratory exam: PRESENT: clear to auscultation jordyn. ABSENT: rales, rhonchi, wheezes Cardiovascular exam: PRESENT: RRR. ABSENT: diastolic murmur, rubs, systolic murmur Pulses: PRESENT: normal dorsalis pedis pul Vascular exam: PRESENT: normal capillary refill GI/Abdominal exam: PRESENT: normal bowel sounds, soft. ABSENT: distended, guarding, mass, organolmegaly, rebound, tenderness Rectal exam: PRESENT: deferred Extremities exam: PRESENT: other - Left upper extremity weakness with decreased range of motion. ABSENT: calf tenderness, clubbing, pedal edema Neurological exam: PRESENT: alert, awake, oriented to person, oriented to place , oriented to time, oriented to situation, CN II-XII grossly intact. ABSENT: motor sensory deficit Psychiatric exam: PRESENT: appropriate affect, normal mood. ABSENT: homicidal ideation, suicidal ideation Skin exam: PRESENT: dry, intact, warm. ABSENT: cyanosis, rash Results Laboratory Results: 03/03/17 04:24 03/03/17 04:24 Impressions: Head MRI 03/02/17 00:00 IMPRESSION: Positive for acute or sub-acute multifocal infarction in the right frontoparietal region as suggested on the earlier CT scan. EVIDENCE OF ACUTE STROKE: Yes RIGHT watershed distribution of the cerebral arteries. Chest X-Ray 03/02/17 11:16 IMPRESSION: NO ACUTE RADIOGRAPHIC FINDING IN THE CHEST. Head CT 03/02/17 11:16 IMPRESSION: There is mild chronic microvascular ischemia. There is an area in the posterior right parietal lobe concerning for limited acute infarction. EVIDENCE OF ACUTE STROKE: YES. RIGHT PUBLIC HEALTH DENTIST Carotid Doppler Study 03/02/17 13:44 IMPRESSION: Greater than 70% stenosis proximal right ICA from calcific and noncalcific plaque. 50 to 69% narrowing proximal left internal carotid artery from calcific and noncalcific plaque Qualifiers PATEINT BEING DISCHARGED WITH ANY OF THE FOLLOWING DIAGNOSIS?: Stroke VTE patient discharged on overlapping Therapy?: Yes Stroke Pt being discharged on Anti-thrombolytic therapy?: Yes Stroke Pt being discharged on Anti-coagulation therapy?: No Reason(s) for not prescribing Anti-coagulation therapy:: Not indicated Stroke Pt being discharged on Statins?: Yes [place] Pt being discharged on Aspirin therapy?: Yes Plan Time Spent: Less than 30 Minutes
== END 2017-03-04 11:18 | disposition home or self-care (01) ==
LOC: ER 11:05 → EH 13:40 → INTOOBSV 13:40 → UNDOADMIN 14:37 → EH 14:37 → 3N 17:18
PROVIDERS: ADMIT Physician Assistant; ATTEND Physician Assistant
PROC: HZ31ZZZ Individual Counseling for Substance Abuse Treatment, Behavioral (ICD-10-PCS; principal; 2017-03-03)
DX: I63.431 Cerebral infarction due to embolism of right posterior cerebral artery (principal); G81.94 Hemiplegia, unspecified affecting left nondominant side; R29.810 Facial weakness; R20.0 Anesthesia of skin; R20.2 Paresthesia of skin; F17.210 Nicotine dependence, cigarettes, uncomplicated; I16.1 Hypertensive emergency; H35.30 Unspecified macular degeneration; H53.9 Unspecified visual disturbance; I65.23 Occlusion and stenosis of bilateral carotid arteries; R73.9 Hyperglycemia, unspecified; Z79.899 Other long term (current) drug therapy; Z82.49 Family history of ischemic heart disease and other diseases of the circulatory system
CPT/HCPCS: 93005; 99285; 36415 ×2; 82553; 82962; 82550; 85025; 85027; 85610; 85730; 80053 ×2; 81001; 84484; 83036; 80061; 93306; 93880; 70551; 71010; 70450; 93010; 97163; 92522; 97167; 99406; A9270 ×10; J1650 ×2; J3490 ×3; G8978; G8979; G8980; G8999; G9186; G9158; G8990; G8991